=== PATIENT | female | born 1955 | race Caucasian/White ===

== ENCOUNTER 2022-07-02 07:21 | Emergency (ER) | payer OTHER ==
[2022-07-02 08:17] LABS: HEMOGLOBIN 13.4 gm/dl (12.3-15.3); RED BLOOD COUNT 4.07 M/UL (4.00-5.10); WHITE BLOOD COUNT 7.3 K/UL (4.5-11.0)
[2022-07-02 08:52] LABS: BUN/CREATININE RATIO 12 (0-10)
== END 2022-07-02 12:00 | disposition home or self-care (01) ==
LOC: ER1 07:21
PROVIDERS: Emergency Medicine
DX: R07.9 Chest pain, unspecified (principal); M54.50 Low back pain, unspecified; G89.29 Other chronic pain; I10 Essential (primary) hypertension
CPT/HCPCS: 71045; 80048; 84484; 85025; 99285